=== PATIENT | female | born 1975 | race Caucasian/White ===

== ENCOUNTER 2016-12-07 14:50 | Emergency (ER) | payer OTHER ==
[2016-12-07 15:03] VITALS: BP 150/97; PULSE 97; TEMP 98.1; BMI 30.1
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
[2016-12-07] MEDS ORDERED: KETOROLAC TROMETHAMINE 60 MG/2 ML VIAL IM ONE (15:32)
[2016-12-07] MEDS ORDERED: hydrOXYzine PAMOATE 50 MG CAPSULE (FP) PO ONE (15:33)
[2016-12-07] MEDS ORDERED: hydrOXYzine PAMOATE 25 MG CAPSULE (FP) PO ONE (15:48)
[2016-12-07] MEDS ORDERED: KETOROLAC TROMETHAMINE 60 MG/2 ML VIAL ONE (15:48)
== END 2016-12-07 17:25 | disposition home or self-care (01) ==
LOC: FER 14:50
PROC: 3E0233Z Introduction of Anti-inflammatory into Muscle, Percutaneous Approach (ICD-10-PCS; principal; 2016-12-07)
DX: S13.4XXA Sprain of ligaments of cervical spine, initial encounter (principal); V43.52XA Car driver injured in collision with other type car in traffic accident, initial encounter; Y93.89 Activity, other specified; Y92.410 Unspecified street and highway as the place of occurrence of the external cause; J45.909 Unspecified asthma, uncomplicated; E78.00 Pure hypercholesterolemia, unspecified; E07.9 Disorder of thyroid, unspecified; Z87.891 Personal history of nicotine dependence
CPT/HCPCS: 72050-TC; 84703; 99283-25

== ENCOUNTER 2017-06-30 02:32 | Emergency (ER) | payer OTHER ==
[2017-06-30 03:11] VITALS: BMI 31.5
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
[2017-06-30] MEDS ORDERED: ACETAMINOPHEN 1000 MG/100 ML VIAL (NON FORMULARY) IVPB ONE (03:49)
[2017-06-30] MEDS ORDERED: ACETAMINOPHEN INJECTION 100 ML IVPB ONE (04:03)
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
[2017-06-30 04:11] LABS: URINE APPEARANCE CLEAR; URINE BILIRUBIN NEGATIVE (NEGATIVE); URINE BLOOD NEGATIVE (NEGATIVE); URINE COLOR LT. YELLOW; URINE GLUCOSE (UA) NEGATIVE (NEGATIVE); URINE KETONE NEGATIVE (NEGATIVE); URINE NITRITE NEGATIVE (NEGATIVE); URINE PROTEIN NEGATIVE (NEGATIVE); URINE UROBILINOGEN 0.2 mg/dL (0.2-1.0)
[2017-06-30 04:13] LABS: URINE LEUK ESTERASE 2+ (NEGATIVE)
[2017-06-30 04:25] LABS: URINE WBC 15 /hpf (3-5)
[2017-06-30 04:27] LABS: BASOPHIL 1.3 % (0-2.0); EOSINOPHIL 3.2 % (0-4.5); MCH 31.8 pg (25.7-33.7); MCHC 34.1 g/dl (32.0-36.0); MEAN CELL VOLUME 93.2 fl (80-96); MEAN PLT VOLUME 8.7 fl (7.5-11.1); NEUTROPHILS 56.5 % (42.8-82.8); PLATELET COUNT 264 K/MM3 (134-434); RDW 12.8 % (11.6-15.6); WHITE BLOOD COUNT 9.1 K/mm3 (4.0-10.0)
[2017-06-30 04:38] LABS: INR 1.03 (0.82-1.09); PROTHROMBIN TIME (PATIENT) 11.3 SEC (9.98-11.88)
[2017-06-30 05:48] LABS: ALBUMIN 3.6 g/dl (3.4-5.0); ALK PHOS 39 U/L (45-117); ANION GAP 6 (8-16); BILIRUBIN,TOTAL 0.3 mg/dL (0.2-1.0); CALCIUM 8.9 mg/dL (8.5-10.1); CO2 25 mmol/L (21-32); CREATININE 0.5 mg/dL (0.55-1.02); GLUCOSE,RANDOM 90 mg/dL (74-106); SGPT/ALT 26 U/L (12-78); TOT PROT 6.8 g/dl (6.4-8.2)
[2017-06-30 05:49] LABS: SGOT/AST 20 U/L (15-37)
[2017-06-30 07:27] VITALS: BP 126/78; PULSE 66; TEMP 98.6
== END 2017-06-30 08:25 | disposition home or self-care (01) ==
LOC: JER 02:32
PROC: 3E033NZ Introduction of Analgesics, Hypnotics, Sedatives into Peripheral Vein, Percutaneous Approach (ICD-10-PCS; principal; 2017-06-30)
DX: N83.201 Unspecified ovarian cyst, right side (principal); D25.9 Leiomyoma of uterus, unspecified
CPT/HCPCS: 36415; 76830-TC; 80053; 81003; 81015; 84703; 85025; 85610; 86850; 86900; 86901; 87086; 96374; 99282-25

== ENCOUNTER 2018-01-04 14:59 | Emergency (ER) | payer OTHER ==
[2018-01-04 15:05] VITALS: BP 145/100; PULSE 83; TEMP 98; BMI 31.5
[2018-01-04] MEDS ORDERED: ONDANSETRON *ODT* 4 MG TABLET SL ONE (15:05)
--- NOTE | 2018-01-04 15:06 | PDOC ---
Rapid Medical Evaluation Time Seen by Provider: 01/04/18 15:00 Medical Evaluation: Allergies Allergy/AdvReac Type Severity Reaction Status Date / Time codeine Allergy Verified 06/30/17 02:45 sulfamethoxazole Allergy Verified 06/30/17 02:45 [From Bactrim] trimethoprim [From Bactrim] Allergy Verified 06/30/17 02:45 01/04/18 15:00 The patient presents with a chief complaint of: Chest pains starting approximately 20 minutes ago, was a 10/10 midsternal pain. Was standing talking to brother and pain started. Pain radiated to the back and jaw. Smokes a pack or two a day. Pain is now dull and less than before 4/10. No recent travel or control use. Also admits to nausea. I have performed a brief in-person evaluation of this patient; Pertinent physical exam findings: ambulatory, in no respiratory distress I have ordered the following: CBC, CMP, PT/INR, Cardiac profile, mag, EKG, Chest x-ray The patient will proceed to the ED for further evaluation.
[2018-01-04] MEDS ORDERED: ONDANSETRON *ODT* 4 MG TABLET ONE (15:29)
[2018-01-04 15:46] LABS: EOS % 2.4 % (0-4.5); HEMATOCRIT 42.9 % (32.4-45.2); HEMOGLOBIN 14.8 GM/dL (10.7-15.3); LYMPH % 31.2 % (8-40); MCH 32.4 pg (25.7-33.7); MCHC 34.4 g/dl (32.0-36.0); MEAN CELL VOLUME 93.9 fl (80-96); MEAN PLT VOLUME 8.6 fl (7.5-11.1); MONO % 7.7 % (3.8-10.2); NEUT % 57.7 % (42.8-82.8); PLATELET COUNT 297 K/MM3 (134-434); RBC 4.57 M/mm3 (3.60-5.2); RDW 13.1 % (11.6-15.6); WHITE BLOOD COUNT 8.2 K/mm3 (4.0-10.0)
[2018-01-04 15:48] LABS: URINE APPEARANCE CLEAR; URINE BILIRUBIN NEGATIVE (<2.0 mg/dL); URINE BLOOD NEGATIVE (NEGATIVE); URINE COLOR LTYELLOW; URINE GLUCOSE (UA) NEGATIVE (NEGATIVE); URINE KETONE NEGATIVE (NEGATIVE); URINE LEUK ESTERASE 1+ (NEGATIVE); URINE NITRITE NEGATIVE (NEGATIVE); URINE PROTEIN NEGATIVE (NEGATIVE); URINE UROBILINOGEN NEGATIVE mg/dL (0.2-1.0)
[2018-01-04 15:49] LABS: HCG,QUALITATIVE URINE NEGATIVE
[2018-01-04 15:51] LABS: EPI CELLS RARE /HPF (FEW); URINE MUCUS RARE
[2018-01-04 16:01] LABS: INR 1.06 (0.82-1.09)
[2018-01-04 16:12] LABS: ALBUMIN 3.9 g/dl (3.4-5.0); ALK PHOS 47 U/L (45-117); ANION GAP 10 (8-16); BILIRUBIN,TOTAL 0.5 mg/dL (0.2-1.0); BLOOD UREA NITROGEN 8 mg/dL (7-18); CALCIUM 9.2 mg/dL (8.5-10.1); CHLORIDE 104 mmol/L (98-107); CO2 28 mmol/L (21-32); CREATININE 0.6 mg/dL (0.55-1.02); GLUCOSE,RANDOM 92 mg/dL (74-106); MAGNESIUM 2.4 mg/dL (1.8-2.4); POTASSIUM 4.5 mmol/L (3.5-5.1); SGOT/AST 21 U/L (15-37); SGPT/ALT 28 U/L (12-78); SODIUM 142 mmol/L (136-145); TOT PROT 7.4 g/dl (6.4-8.2)
--- NOTE | 2018-01-04 16:28 | PDOC ---
History of Present Illness - General Chief Complaint: Chest Pain Stated Complaint: PAIN/ CHEST, NECK Time Seen by Provider: 01/04/18 15:00 History Source: Patient Exam Limitations: No Limitations - History of Present Illness Initial Comments: 01/04/18 16:39 This is 42-year-old woman with past medical history of anxiety, GERD, migraines , hypothyroidism, hyperlipidemia who presents to emergency department with sudden onset midsternal chest pain while discussing a green party for her step- mother. Patient was sitting down discussing with her brother when the pain came on all of a sudden patient states the pain was a dull feeling with a rating of 7 -8/10. She states the pain was radiating to her right jaw and she was feeling nauseous. She denies vomiting. She states the pain subsided to 2/10 after approximately 45 minutes. Patient notes that she's been having epigastric pain on arrival for the past 5 weeks. Patient denies any reads of inactivity, recent medication changes or OCP use. Patient is currently 1-2 pack per day smoker. She denies fevers, chills, cough, dizziness, shortness of breath, abdominal pain , vomiting, dysuria, hematuria, rectal bleeding, diarrhea. Past History - Past Medical History Allergies/Adverse Reactions: Allergies Allergy/AdvReac Type Severity Reaction Status Date / Time codeine Allergy Verified 01/04/18 15:00 sulfamethoxazole Allergy Verified 01/04/18 15:00 [From Bactrim] trimethoprim [From Bactrim] Allergy Verified 01/04/18 15:00 Home Medications: Ambulatory Orders Levothyroxine [Synthroid -] 137 mcg PO DAILY 02/17/16 Ranitidine [Zantac -] 150 mg PO DAILY #30 tablet 02/21/16 Botulinum Toxin A [Botox (Nf) -] 0 units IM ASDIR 12/07/16 Butalb/Acetaminophen/Caffeine [Kwonfr-Yrzujtpi-Emah 50-325-40] 1 each PO PRN PRN 01/04/18 Cyclobenzaprine HCl [Flexeril 10 mg] 10 mg PO TID PRN 01/04/18 Naproxen [Naprosyn] 375 mg PO BID PRN 01/04/18 Anemia: No Asthma: Yes Cancer: No Cardiac Disorders: No CVA: No COPD: No CHF: No DVT: No Dementia: No Diabetes: No GI Disorders: Yes (gerd) Disorders: No HTN: No Hypercholesterolemia: Yes Liver Disease: No Seizures: No Thyroid Disease: Yes (hyper) - Surgical History Abdominal Surgery: No Appendectomy: No Cardiac Surgery: No Cholecystectomy: No Gastric Stapling: No GI Surgery: No Lung Surgery: No Neurologic Surgery: No - Family Disease History Family Disease History: Heart Disease: Father, Other: Mother ([place]), Brother ( [place]inuds) - Suicide/Smoking/Psychosocial Hx Smoking History: Current every day smoker Have you smoked in the past 12 months: Yes Number of Cigarettes Smoked Daily: 30 Information on smoking cessation initiated: Yes 'Breaking Loose' booklet given: 01/04/18 Hx Alcohol Use: No Drug/Substance Use Hx: No Substance Use Type: None Cardiac Specific PMH - Complaint Specific PMHX Pacemaker: No Review of Systems - Review of Systems Able to Perform ROS?: Yes Is the patient limited [place] proficient: No Constitutional: No: Symptoms Reported HEENTM: No: Symptoms Reported Respiratory: No: Symptoms reported Cardiac (ROS): Yes: See HPI ABD/GI: Yes: See HPI : No: Symptoms Reported Musculoskeletal: No: Symptoms Reported Integumentary: No: Symptoms Reported Neurological: No: Symptoms reported Endocrine: No: Symptoms Reported Hematologic/Lymphatic: No: Symptoms Reported *Physical Exam - Vital Signs Last Vital Signs Temp Pulse Resp BP Pulse Ox 98.0 F 83 18 145/100 100 01/04/18 15:01 01/04/18 15:01 01/04/18 15:01 01/04/18 15:01 01/04/18 15:01 - Physical Exam General Appearance: Yes: Appropriately Dressed. No: Apparent Distress HEENT: positive: Normal ENT Inspection Neck: positive: Trachea midline, Supple Respiratory/Chest: positive: Lungs Clear, Normal Breath Sounds. negative: Respiratory Distress, Accessory Muscle Use Cardiovascular: positive: Regular Rhythm, Regular Rate, S1, S2. negative: Edema , Murmur Gastrointestinal/Abdominal: positive: Normal Bowel Sounds, Soft. negative: Tender Musculoskeletal: positive: Normal Inspection. negative: CVA Tenderness Extremity: positive: Normal Capillary Refill, Normal Inspection, Normal Range of Motion Integumentary: positive: Normal Color, Dry, Warm Neurologic: positive: tablet technician II-XII NML intact, Fully Oriented, Alert, Normal Mood/ Affect, Normal Response, Motor Strength 5/5 ED Treatment Course - LABORATORY CBC & Chemistry Diagram: 01/04/18 15:25 01/04/18 15:25 - ADDITIONAL ORDERS Additional order review: 01/04/18 15:25 RBC 4.57 MCV 93.9 MCHC 34.4 RDW 13.1 MPV 8.6 Neutrophils % 57.7 Lymphocytes % 31.2 Monocytes % 7.7 Eosinophils % 2.4 Basophils % 1.0 - Medications Given in the ED: ED Medications Discontinued Medications Generic Name Dose Route Start Last Admin Trade Name Jules PRN Reason Stop Dose Admin Ondansetron HCl 4 mg 01/04/18 15:05 01/04/18 15:31 Zofran Odt - SL 01/04/18 15:06 4 mg ONCE ONE Administration Medical Decision Making - Medical Decision Making 01/04/18 16:45 CC: Midsternal chest pain radiating to her right jaw lasting approximately 45 minutes A/P: 42-year-old woman with history of panic attacks, GERD, migraines, hypothyroidism , hypercholesterolemia with sudden onset midsternal chest pressure radiating to her right jaw lasting approximately 45 minutes rated 7-8/10 and currently 2/10. Lungs clear to auscultation bilaterally. RRR. S1 and S2 present. No murmur, rub or gallop appreciated. Abdomen soft nontender nondistended. No pedal edema present Differential diagnoses include ACS, [place] skeletal pain, anxiety, GERD Less likely PE given perks score of 0. This likely pneumonia as patient is no coughing and has not reported any fevers Labs, EKG, chest x-ray *DC/Admit/Observation/Transfer Diagnosis at time of Disposition: Atypical chest pain - Discharge Dispostion Disposition: AGAINST MEDICAL ADVICE Condition at time of disposition: Stable - Referrals Referrals: Keaton Morales MD [Staff Physician] - James Barfield MD [Primary Care Provider] - - Patient Instructions Printed Discharge Instructions: DI for Atypical Chest Pain Additional Instructions: Take Tylenol as needed for pain Follow-up with your physician and the well puller listed on your discharge sheet if you don't have one You are signing out AGAINST MEDICAL ADVICE, Return back to the emergency department for severe/persistent or worsening symptoms - Post Discharge Activity
--- NOTE | 2018-01-04 21:15 | PDOC ---
*Physical Exam - Vital Signs Last Vital Signs Temp Pulse Resp BP Pulse Ox 98.0 F 83 18 145/100 100 01/04/18 15:01 01/04/18 15:01 01/04/18 15:01 01/04/18 15:01 01/04/18 15:01 - Physical Exam Comments: 01/04/18 21:13 42-year-old female presents to the emergency department complaining of 10/10 dull intermittent midsternal chest pain radiating to the back and jaw prior to her arrival to the ER but has decreased to 2/10 dull nonradiating discomfort. Patient denies nausea/vomiting, fever/chills at this time, headache, dizziness, lightheadedness, facial pains, neck pains, back pains, shortness of breath, abdominal discomfort, urinary symptoms. Patient states she feels a lot better at this time. She reports if she initially started with the symptoms that she has now, she was noted to come to the emergency department. ED Treatment Course - LABORATORY CBC & Chemistry Diagram: 01/04/18 15:25 01/04/18 15:25 - ADDITIONAL ORDERS Additional order review: Laboratory Results 01/04/18 01/04/18 01/04/18 15:30 15:25 15:25 PT with INR INR Sodium 142 Potassium 4.5 Chloride 104 Carbon Dioxide 28 Anion Gap 10 BUN 8 Creatinine 0.6 Creat Clearance w eGFR > 60 Random Glucose 92 Calcium 9.2 Magnesium 2.4 Total Bilirubin 0.5 D AST 21 ALT 28 Alkaline Phosphatase 47 Creatine Kinase 65 Troponin I < 0.02 Total Protein 7.4 Albumin 3.9 Urine Color Ltyellow Urine Appearance Clear Urine pH 7.0 Ur Specific [place] 1.010 Urine Protein Negative Urine Glucose (UA) Negative Urine Ketones Negative Urine Blood Negative Urine Nitrite Negative Urine Bilirubin Negative Urine Urobilinogen Negative Ur Leukocyte Esterase 1+ H Urine WBC (Auto) 1 Urine RBC (Auto) None Ur Epithelial Cells Rare Urine Mucus Rare Urine HCG, Qual Negative 01/04/18 15:25 PT with INR 12.00 H INR 1.06 Sodium Potassium Chloride Carbon Dioxide Anion Gap BUN Creatinine Creat Clearance w eGFR Random Glucose Calcium Magnesium Total Bilirubin AST ALT Alkaline Phosphatase Creatine Kinase Troponin I Total Protein Albumin Urine Color Urine Appearance Urine pH Ur Specific [place] Urine Protein Urine Glucose (UA) Urine Ketones Urine Blood Urine Nitrite Urine Bilirubin Urine Urobilinogen Ur Leukocyte Esterase Urine WBC (Auto) Urine RBC (Auto) Ur Epithelial Cells Urine Mucus Urine HCG, Qual 01/04/18 15:25 RBC 4.57 MCV 93.9 MCHC 34.4 RDW 13.1 MPV 8.6 Neutrophils % 57.7 Lymphocytes % 31.2 Monocytes % 7.7 Eosinophils % 2.4 Basophils % 1.0 - Medications Given in the ED: ED Medications Discontinued Medications Generic Name Dose Route Start Last Admin Trade Name Jules PRN Reason Stop Dose Admin Ondansetron HCl 4 mg 01/04/18 15:05 01/04/18 15:31 Zofran Odt - SL 01/04/18 15:06 4 mg ONCE ONE Administration Progress Note - Progress Note Progress Note: GENERAL: Well developed, well nourished. Awake and alert. No acute distress. HEENT: Normocephalic, atraumatic. PERRLA, EOMI. No conjunctival pallor. Sclera are non- icteric. Moist mucous membranes. Oropharynx is clear. NECK: Supple. Full ROM. No JVD. Carotid pulses 2+ and symmetric, without bruits. No thyromegaly. No lymphadenopathy. CARDIOVASCULAR: Regular rate and rhythm. No murmurs, rubs, or gallops. Distal pulses are 2+ and symmetric. PULMONARY: No evidence of respiratory distress. Lungs clear to auscultation bilaterally. No wheezing, rales or rhonchi. ABDOMINAL: Soft. Non-tender. Non-distended. No rebound or guarding. No organomegaly. Normoactive bowel sounds. MUSCULOSKELETAL Normal range of motion at all joints. No bony deformities or tenderness. No CVA tenderness. EXTREMITIES: No cyanosis. No clubbing. No edema. No calf tenderness. SKIN: Warm and dry. Normal capillary refill. No rashes. No jaundice. *DC/Admit/Observation/Transfer Diagnosis at time of Disposition: Atypical chest pain - Discharge Dispostion Disposition: AGAINST MEDICAL ADVICE Condition at time of disposition: Stable Admit: No - Referrals Referrals: James Barfield MD [Primary Care Provider] - Keaton Morales MD [Staff Physician] - - Patient Instructions Printed Discharge Instructions: DI for Atypical Chest Pain Additional Instructions: Take Tylenol as needed for pain Follow-up with your physician and the substation designer listed on your discharge sheet if you don't have one You are signing out AGAINST MEDICAL ADVICE, Return back to the emergency department for severe/persistent or worsening symptoms - Post Discharge Activity
--- NOTE | 2018-01-07 11:39 | EKG ---
Test Reason : Blood Pressure : / mmHG Vent. Rate : 081 BPM Atrial Rate : 081 BPM P-R Int : 150 ms QRS Dur : 082 ms QT Int : 370 ms P-R-T Axes : 062 026 050 degrees QTc Int : 429 ms NORMAL SINUS RHYTHM NORMAL ECG WHEN COMPARED WITH ECG OF 19-FEB-2016 12:28, VENT. RATE HAS INCREASED BY 27 BPM T WAVE VARIATION Confirmed by BELEM LEON MD ([id number]) on 01/07/2018 11:39:07 AM Referred By: Confirmed By:BELEM LEON MD
== END 2018-01-04 23:25 | disposition left against medical advice (07) ==
LOC: JER 14:59
DX: R07.89 Other chest pain (principal); J45.909 Unspecified asthma, uncomplicated; E03.9 Hypothyroidism, unspecified; K21.9 Gastro-esophageal reflux disease without esophagitis; E78.5 Hyperlipidemia, unspecified; F17.210 Nicotine dependence, cigarettes, uncomplicated; F41.9 Anxiety disorder, unspecified
CPT/HCPCS: 36415; 71046-TC-FY; 80053; 81003; 81015; 82550; 83735; 84484; 84703; 85025; 85610; 93005; 93010; 99283-25; Q0162

== ENCOUNTER 2018-07-08 12:50 | Emergency (ER) | payer OTHER ==
[2018-07-08 12:59] VITALS: BP 176/88; PULSE 89; TEMP 98.6; BMI 30.8
[2018-07-08] MEDS ORDERED: IBUPROFEN 400 MG TABLET (FP) PO ONE (15:06)
--- NOTE | 2018-07-08 15:14 | PDOC ---
History of Present Illness - General Chief Complaint: Injury Stated Complaint: INJURY Time Seen by Provider: 07/08/18 13:35 - History of Present Illness Initial Comments: 43-year-old female with a asked medical history significant for hypothyroidism presents for evaluation after slip and fall. She states she slipped on a wet deck fell and hit her face on a step contusing her nose. She does have some post injury headache without visual changes and nausea some neck pain. No visual changes. No post injury vomiting 07/08/18 15:08 Past History - Past Medical History Allergies/Adverse Reactions: Allergies Allergy/AdvReac Type Severity Reaction Status Date / Time codeine Allergy Verified 07/08/18 12:53 sulfamethoxazole Allergy Verified 07/08/18 12:53 [From Bactrim] trimethoprim [From Bactrim] Allergy Verified 07/08/18 12:53 Home Medications: Ambulatory Orders Levothyroxine [Synthroid -] 137 mcg PO DAILY 02/17/16 Ranitidine [Zantac -] 150 mg PO DAILY #30 tablet 02/21/16 Botulinum Toxin A [Botox (Nf) -] 0 units IM ASDIR 12/07/16 Butalb/Acetaminophen/Caffeine [Virkyt-Nukajhdb-Fjrw 50-325-40] 1 each PO PRN PRN 01/04/18 Cyclobenzaprine HCl [Flexeril 10 mg] 10 mg PO TID PRN 01/04/18 Naproxen [Naprosyn] 375 mg PO BID PRN 01/04/18 Anemia: No Asthma: Yes Cancer: No Cardiac Disorders: No CVA: No COPD: No CHF: No DVT: No Dementia: No Diabetes: No GI Disorders: Yes (gerd) Disorders: No HTN: No Hypercholesterolemia: Yes Liver Disease: No Seizures: No Thyroid Disease: Yes (hyper) - Surgical History Abdominal Surgery: No Appendectomy: No Cardiac Surgery: No Cholecystectomy: No Gastric Stapling: No GI Surgery: No Lung Surgery: No Neurologic Surgery: No - Family Disease History Family Disease History: Heart Disease: Father, Other: Mother (MS), Brother ( Raynauds) - Suicide/Smoking/Psychosocial Hx Smoking History: Current every day smoker Have you smoked in the past 12 months: Yes Number of Cigarettes Smoked Daily: 20 Information on smoking cessation initiated: No 'Breaking Loose' booklet given: 01/04/18 Hx Alcohol Use: No Drug/Substance Use Hx: No Substance Use Type: None Review of Systems - Review of Systems HEENTM: Yes: Nose Pain. No: Eye Pain, Blurred Vision, Double Vision, Tinnitus Neurological: Yes: Headache All Other Systems: Reviewed and Negative *Physical Exam - Vital Signs Last Vital Signs Temp Pulse Resp BP Pulse Ox 98.6 F 89 18 176/88 H 98 07/08/18 12:55 07/08/18 12:55 07/08/18 12:55 07/08/18 12:55 07/08/18 12:55 - Physical Exam Comments: HEAD: NC EYES: Conjuntiva clear Ears: Canals and TM's normal NOSE: No d/c, there dried blood in the nostrils there is nasal swelling without crepitation appropriate tenderness about the nasal bones. THROAT: Moist mucous membrances, oral pharanx clear, uvula midline NECK: Supple without adenopathy CARDIAC: S1 S2 LUNGS: CTA Full and Equal breath sounds ABDOMEN: Soft NT ND MS: Full ROM in all joints without edema NEUROLOGIC: No gross sensory or motor deficits, NVID SKIN: Normal color and temperature no lesions or rashes 07/08/18 15:11 ED Treatment Course - ADDITIONAL ORDERS Additional order review: Laboratory Results 07/08/18 13:35 Urine HCG, Qual Negative - RADIOLOGY Radiology Studies Ordered: Category Date Time Status CERVICAL SPINE CT W/O CONTR [CT] Stat CT Scan 07/08/18 13:[address] W/O CONTRAST [CT] Stat CT Scan 07/08/18 13:[address] WITHOUT CONTRAST [CT] Stat CT Scan 07/08/18 13:56 Completed Medical Decision Making - Medical Decision Making Facial contusion closed head injury I have patient follow-up with PCP and plastic surgery no acute fractures CTs reviewed patient is aware of CT findings 07/08/18 15:13 *DC/Admit/Observation/Transfer Diagnosis at time of Disposition: Closed head injury, Contusion of nose - Referrals Referrals: Alvaro Adam [Non Staff, Medical] - Sheila Carver MD [Non Staff, Medical] - Shiva Waller MD [Non Staff, Medical] - Lewis Iverson [Nurse Practitioner] - Riccardo Rosas [Non Staff, Medical] - Anju Crowe MD [Non Staff, Medical] - Ulices Ruiz MD [Non Staff, Medical] - Rl Short MD [Staff Physician] - Ysabel Alejo MD [Non Staff, Medical] - Krzysztof Krishnamurthy DO [Staff Physician] - - Patient Instructions Additional Instructions: Follow-up with plastic surgery for evaluation. Facial contusions. She also follow-up with neurology fear closed head injury. Return to the emergency room should symptoms worsen or go unresolved may take Tylenol and Motrin for pain as directed. - Post Discharge Activity
[2018-07-08] MEDS ORDERED: IBUPROFEN 600 MG TABLET (FP) PO ONE (15:16)
== END 2018-07-08 15:36 | disposition home or self-care (01) ==
LOC: JERFT 12:50
DX: S00.33XA Contusion of nose, initial encounter (principal); W01.0XXA Fall on same level from slipping, tripping and stumbling without subsequent striking against object, initial encounter; Z91.81 History of falling; Y93.89 Activity, other specified; Y92.89 Other specified places as the place of occurrence of the external cause; Y99.8 Other external cause status; E06.9 Thyroiditis, unspecified; K21.9 Gastro-esophageal reflux disease without esophagitis; E78.00 Pure hypercholesterolemia, unspecified; Z87.09 Personal history of other diseases of the respiratory system; Z88.2 Allergy status to sulfonamides; Z88.0 Allergy status to penicillin
CPT/HCPCS: 70450-TC; 70486-TC; 72125-TC; 84703; 99281-25

== ENCOUNTER 2019-04-07 15:21 | Emergency (ER) | payer OTHER ==
[2019-04-07] MEDS ORDERED: KETOROLAC TROMETHAMINE 60 MG/2 ML VIAL IM ONE (17:11)
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
[2019-04-07 17:19] VITALS: BP 127/80; PULSE 72; TEMP 98.6; BMI 31.6
[2019-04-07] MEDS ORDERED: KETOROLAC TROMETHAMINE 60 MG/2 ML VIAL ONE (17:19)
== END 2019-04-07 17:49 | disposition home or self-care (01) ==
LOC: FER 15:21
PROC: 3E0233Z Introduction of Anti-inflammatory into Muscle, Percutaneous Approach (ICD-10-PCS; principal; 2019-04-07)
DX: Z04.1 Encounter for examination and observation following transport accident (principal); S13.4XXA Sprain of ligaments of cervical spine, initial encounter; V49.40XA Driver injured in collision with unspecified motor vehicles in traffic accident, initial encounter; Y93.89 Activity, other specified; Y92.89 Other specified places as the place of occurrence of the external cause; F17.210 Nicotine dependence, cigarettes, uncomplicated; K21.9 Gastro-esophageal reflux disease without esophagitis; E78.00 Pure hypercholesterolemia, unspecified; E07.9 Disorder of thyroid, unspecified
CPT/HCPCS: 99282-25

== ENCOUNTER 2020-04-21 11:58 | Day surgery (SDC) | payer OTHER ==
[2020-04-20 12:20] VITALS: BMI 28.4
[2020-04-21] MEDS ORDERED: MIDAZOLAM HCL 2 MG/2 ML SINGLE DOSE VIAL ONE (14:30)
[2020-04-21] MEDS ORDERED: ceFAZolin SODIUM 1 GM VIAL IVPB ONE (14:54)
[2020-04-21] MEDS ORDERED: ONDANSETRON 4 MG/2 ML VIAL IVPUSH PRN (15:06)
[2020-04-21] MEDS ORDERED: oxyCODONE HCL 5 MG TABLET PO PRN (15:06)
[2020-04-21] MEDS ORDERED: PROMETHAZINE HCL 25 MG/1 ML VIAL IVPUSH PRN (15:06)
--- NOTE | 2020-04-21 15:10 | HP ---
History & Physical Update - History History: No Change - Physical Physical: No Change - Assessment Assessment: No Change - Plan Plan: No Change (Hysteroscopy, D&C)
[2020-04-21] MEDS ORDERED: KETOROLAC TROMETHAMINE 30 MG/1 ML VIAL ONE (15:12)
[2020-04-21] MEDS ORDERED: ceFAZolin SODIUM 1 GM VIAL ONE (15:12)
[2020-04-21] MEDS ORDERED: DEXAMETHASONE SOD PHOSPHATE 4 MG/1 ML VIAL ONE (15:12)
[2020-04-21] MEDS ORDERED: LIDOCAINE HCL/PF 2% SDV 5ML VIAL ONE (15:12)
--- NOTE | 2020-04-21 15:14 | OP ---
Operative Note - Note: Operative Date: 04/21/20 Pre-Operative Diagnosis: Irregular menses, fibroid uterus Operation: Hysteroscopy, D&C Findings: (+) menses. Large and bulky fibroid uterus, normally shaped uterine cavity that sounded to 9cm. Post-Operative Diagnosis: Same as Pre-op Surgeon: Clay Sumner Anesthesiologist/ROTARY DRILLER HELPER: Payam Medel Anesthesia: General Specimens Removed: Endometrial curettings Estimated Blood Loss (mls): 5 Blood Volume Replaced (mls): 0 Fluid Volume Replaced (mls): 500 Operative Report Dictated: Yes
[2020-04-21 15:57] VITALS: TEMP 98
[2020-04-21 17:26] VITALS: BP 121/61; PULSE 75
--- NOTE | 2020-04-22 14:24 | OP ---
DATE OF OPERATION: 04/21/2020 PREOPERATIVE DIAGNOSIS: Irregular menses, fibroid uterus. POSTOPERATIVE DIAGNOSIS: Irregular menses, fibroid uterus. PROCEDURE: Hysteroscopy, dilation and curettage. SURGEON: Clay Sumner MD ANESTHESIA: General. ANESTHESIOLOGIST: Payam Medel MD COMPLICATIONS: None. ESTIMATED BLOOD LOSS: 5 mL. INTRAVENOUS FLUIDS: 500 mL of crystalloids. PATHOLOGY: Endometrial curettings. FINDINGS: Examination under anesthesia revealed patient is currently on mensis. The uterus appeared enlarged and bulky, with multiple fibroids and consistent with approximately 12-13 weeks of gestation. The hysteroscopy showed a normally shaped uterine cavity that was sounded to approximately 9 cm. There were no endometrial lesions. Neither fallopian tube os could be identified. PROCEDURE DICTATION: The patient was met preoperatively. Risks, benefits, and alternatives of surgery were discussed in detail. All questions were answered. The consent form was reviewed and discussed. The patient verbalized her understanding and requested to proceed with the surgery. She was brought to the OR with the IV running. She was placed on a surgical table in the supine position. The general anesthesia was achieved without difficulty. The patient was then placed in a dorsal lithotomy position using adjustable Trae stirrups. She was examined under anesthesia, with the findings as described above. The patient was prepped and draped in the usual sterile fashion. A timeout was conducted as per standard protocol. A weighted speculum was introduced inside the vagina, with good visualization of the cervix. The cervix was grasped with a single-tooth tenaculum. The cervical os was dilated to accommodate a size 13 Moses dilator. A diagnostic hysteroscope was then introduced inside the uterine cavity, with the findings as described above. The hysteroscope was then removed. Uterine curettage was performed gently. The uterine curettings were sent to pathology for evaluation. Once this was completed, a diagnostic hysteroscope was once again placed inside the uterine cavity, with the findings as described above. The hysteroscope was then removed. Good hemostasis was confirmed. All of the instruments were removed from the patient. Sponge, lap, needle counts, instrument counts were correct. The patient was transferred to recovery room in stable condition and awake. Jose FAUSTIN/[id number]
--- NOTE | 2020-04-23 18:29 | PATH ---
Surgical Pathology Report Patient Name: LUZ MARIA GRIMES [facility]. Rec. #: [id number] /Age/Gender: 1975 (Age: 44) / F Account: [id number] Location: [facility] Taken: 04/21/2020 Received: 04/22/2020 Reported: 04/23/2020 Physicians: Clay Sumner M.D. Specimen(s) Received ENDOMETRIAL CURETTINGS Clinical History Fibroid uterus, irregular menstruation Final Diagnosis ENDOMETRIAL CURETTINGS: PREDOMINANTLY WEAKLY PROLIFERATIVE AND FEW SECRETORY TYPE ENDOMETRIAL GLANDS ADMIXED WITH BLOOD AND NEUTROPHILS, CONSISTENT WITH MENSTRUAL ENDOMETRIUM. SEPARATE SMALL PORTIONS OF ENDOMETRIUM POLYP. ENDOCERVICAL TISSUE WITH SQUAMOUS METAPLASIA. Electronically Signed Gricelda Mooney M.D. Gross Description Received in formalin labeled "endometrial curettings," is a 5.0 x 3.8 x 0.4 cm aggregate of callejas-brown soft tissue fragments admixed with blood clot. The formalin is filtered and the specimen is entirely submitted in 4 cassettes. /04/22/2020 [facility]/04/22/2020
== END 2020-04-21 17:28 | disposition home or self-care (01) ==
LOC: JASU-SURG 11:58
PROVIDERS: ATTEND Obstetrics & Gynecology
PROC: 0UDB7ZX Extraction of Endometrium, Via Natural or Artificial Opening, Diagnostic (ICD-10-PCS; principal; 2020-04-21 14:00)
PROC: 0UJD8ZZ Inspection of Uterus and Cervix, Via Natural or Artificial Opening Endoscopic (ICD-10-PCS; 2020-04-21 14:00)
DX: N93.9 Abnormal uterine and vaginal bleeding, unspecified (principal); D25.9 Leiomyoma of uterus, unspecified
CPT/HCPCS: 84703; 88305-TC; 94760

== ENCOUNTER 2021-09-23 05:11 | Day surgery (SDC) | payer OTHER ==
[2021-09-21 14:33] VITALS: BMI 31.8
[2021-09-23 11:04] VITALS: TEMP 98.9
[2021-09-23 11:49] VITALS: BP 99/53; PULSE 58
== END 2021-09-23 13:05 | disposition home or self-care (01) ==
LOC: JASU-ENDO 05:11
PROVIDERS: ATTEND Internal Medicine Gastroenterology
PROC: 0DJD8ZZ Inspection of Lower Intestinal Tract, Via Natural or Artificial Opening Endoscopic (ICD-10-PCS; principal; 2021-09-23 10:20)
DX: Z12.11 Encounter for screening for malignant neoplasm of colon (principal); Z83.71 Family history of colonic polyps; K63.89 Other specified diseases of intestine
CPT/HCPCS: 81025

== ENCOUNTER 2021-09-26 22:43 | Observation (INO) | payer OTHER ==
[2021-09-26 23:04] VITALS: TEMP 98.3; BMI 31.5
[2021-09-27 02:48] LABS: BASO % 0.4 % (0-2.0); LYMPH % 33.5 % (8-40); MCH 31.1 pg (25.7-33.7); MCHC 34.3 g/dl (32.0-36.0); MEAN CELL VOLUME 90.7 fl (80-96); MEAN PLT VOLUME 8.5 fl (7.5-11.1); MONO % 6.9 % (3.8-10.2); NEUT % 58.2 % (42.8-82.8); PLATELET COUNT 326 10^3/uL (134-434); RBC 4.52 M/mm3 (3.60-5.2); RDW 12.5 % (11.6-15.6); WHITE BLOOD COUNT 8.5 K/mm3 (4.0-10.0)
[2021-09-27 02:53] LABS: CHLORIDE 106 mmol/L (98-107); SODIUM 139 mmol/L (136-145)
[2021-09-27 02:56] LABS: ALBUMIN 3.4 g/dl (3.4-5.0); ANION GAP 8 MMOL/L (8-16); BLOOD UREA NITROGEN 15.4 mg/dL (7-18); CALCIUM 9.2 mg/dL (8.5-10.1); CO2 25 mmol/L (21-32); GLUCOSE,RANDOM 95 mg/dL (74-106); LIPASE 93 U/L (73-393)
[2021-09-27 02:59] LABS: CREATININE 0.6 mg/dL (0.55-1.3); SGOT/AST 17 U/L (15-37); SGPT/ALT 26 U/L (13-61)
[2021-09-27 03:01] LABS: BILIRUBIN,TOTAL 0.3 mg/dL (0.2-1)
[2021-09-27 03:02] LABS: ALK PHOS 37 U/L (45-117)
[2021-09-27 03:23] LABS: EPI CELLS 32 /uL (0-25.1); HYALINE CASTS 1 /uL (0-3.1); URINE APPEARANCE CLEAR; URINE BACTERIA 856 /uL (0-1359); URINE BILIRUBIN NEGATIVE (NEGATIVE); URINE COLOR YELLOW; URINE GLUCOSE (UA) NEGATIVE (NEGATIVE); URINE KETONE NEGATIVE (NEGATIVE); URINE LEUK ESTERASE TRACE (NEGATIVE); URINE NITRITE NEGATIVE (NEGATIVE); URINE PROTEIN NEGATIVE (NEGATIVE); URINE RBC 7 /uL (0-23.9); URINE UROBILINOGEN 0.2 mg/dL (0.2-1.0); URINE WBC 34 /uL (0-25.8)
[2021-09-27] MEDS ORDERED: LEVOTHYROXINE NA 112 MCG TABLET (FP) PO SCH (07:00)
[2021-09-27] MEDS ORDERED: LEVOTHYROXINE NA 125 MCG TABLET (FP) PO SCH (07:00)
[2021-09-27] MEDS ORDERED: MULTIVITAMINS (DAILY MVI) TABLET (FP) PO SCH (10:00)
[2021-09-27] MEDS ORDERED: ASPIRIN 81 MG CHEWABLE TABLETS PO SCH (10:00)
[2021-09-27] MEDS ORDERED: ASPIRIN 81 MG CHEWABLE TABLETS ONE (10:38)
[2021-09-27] MEDS ORDERED: MULTIVITAMINS (DAILY MVI) TABLET (FP) ONE (10:38)
[2021-09-27 12:08] VITALS: PULSE 78
[2021-09-27 13:55] VITALS: BP 120/69
== END 2021-09-27 13:55 | disposition home or self-care (01) ==
LOC: JER 22:43 → JERBED 09-27 05:43
PROVIDERS: ADMIT Family Medicine; ATTEND Family Medicine
PROC: 3E013GC Introduction of Other Therapeutic Substance into Subcutaneous Tissue, Percutaneous Approach (ICD-10-PCS; principal; 2021-09-27)
PROC: 3E0F7SF Introduction of Other Gas into Respiratory Tract, Via Natural or Artificial Opening (ICD-10-PCS; 2021-09-27)
DX: R07.89 Other chest pain (principal); E03.9 Hypothyroidism, unspecified; K21.9 Gastro-esophageal reflux disease without esophagitis; E78.5 Hyperlipidemia, unspecified; Z88.1 Allergy status to other antibiotic agents; Z88.2 Allergy status to sulfonamides; Z88.5 Allergy status to narcotic agent; Z20.822 Contact with and (suspected) exposure to COVID-19; Z87.891 Personal history of nicotine dependence
CPT/HCPCS: 36415; 71046-TC-FY; 76705-TC; 80053; 81003; 82550; 83690; 84484; 84703; 85025; 93005; 93010; 94640; 96372; 99285-25; C9803; G0378; U0003; U0005

== ENCOUNTER 2023-05-12 20:41 | Emergency (ER) | payer OTHER ==
[2023-05-12 20:48] VITALS: BP 148/96; PULSE 107; RESP 18; TEMP 97.5; BMI 33.7
[2023-05-12] MEDS ORDERED: ACETAMINOPHEN 1000 MG/100 ML BAG IVPB ONE (20:55)
[2023-05-12] MEDS ORDERED: SODIUM CHLORIDE 1,000 ML IV STA (20:55)
[2023-05-12] MEDS ORDERED: ONDANSETRON 4 MG/2 ML VIAL IVPUSH ONE (20:56)
[2023-05-12] MEDS ORDERED: ALPRAZolam 1 MG TABLET PO PRN (21:07)
[2023-05-12] MEDS ORDERED: FAMOTIDINE 20 MG/50 ML IVPB 20 MG/50 ML MG IVPB ONE (21:08)
[2023-05-12] MEDS ORDERED: MAG HYDROX/AL HYDROX/SIMETH 30 ML UNIT-DOSE CUP PO ONE (21:08)
[2023-05-12] MEDS ORDERED: MAG HYDROX/AL HYDROX/SIMETH 30 ML UNIT-DOSE CUP ONE (21:52)
[2023-05-12] MEDS ORDERED: ALPRAZolam 0.25 MG TABLET ONE (21:52)
[2023-05-12] MEDS ORDERED: FAMOTIDINE 10 MG/ML VIAL IVPB ONE (21:53)
[2023-05-12] MEDS ORDERED: ONDANSETRON 4 MG/2 ML VIAL ONE (21:53)
[2023-05-12 22:06] LABS: BASO % 0.8 % (0-2.0); EOS % 1.9 % (0-4.5); HEMATOCRIT 42.6 % (32.4-45.2); HEMOGLOBIN 14.7 GM/dL (10.7-15.3); LYMPH % 25.2 % (8-40); MCH 31.1 pg (25.7-33.7); MCHC 34.4 g/dl (32.0-36.0); MEAN CELL VOLUME 90.5 fl (80-96); MEAN PLT VOLUME 8.9 fl (7.5-11.1); MONO % 8.6 % (3.8-10.2); NEUT % 63.5 % (42.8-82.8); PLATELET COUNT 294 10^3/uL (134-434); RBC 4.71 M/mm3 (3.60-5.2); RDW 12.4 % (11.6-15.6); WHITE BLOOD COUNT 8.3 K/mm3 (4.0-10.0)
[2023-05-12 22:08] LABS: VENOUS O2 SATURATION 89.4 % (70-80); VENOUS PCO2 38.1 mmHg (38-52); VENOUS PH 7.375 (7.310-7.410)
[2023-05-12 22:13] LABS: CHLORIDE 112 mmol/L (98-107); POTASSIUM 3.7 mmol/L (3.5-5.1); SODIUM 145 mmol/L (136-145)
[2023-05-12 22:15] LABS: ALBUMIN 3.7 g/dl (3.4-5.0); ANION GAP 6 MMOL/L (8-16); CALCIUM 9.2 mg/dL (8.5-10.1); CO2 27 mmol/L (21-32); GLUCOSE,RANDOM 89 mg/dL (74-106); LIPASE 110 U/L (73-393)
[2023-05-12 22:18] LABS: BILIRUBIN,DIRECT 0.1 mg/dL (0.0-0.2); SGPT/ALT 29 U/L (13-61)
[2023-05-12 22:19] LABS: CREATININE 0.8 mg/dL (0.55-1.3); PHOSPHOROUS 2.3 mg/dL (2.5-4.9)
[2023-05-12 22:20] LABS: BILIRUBIN,TOTAL 0.3 mg/dL (0.2-1); TOT PROT 7.3 g/dl (6.4-8.2)
[2023-05-12 22:21] LABS: ALK PHOS 46 U/L (45-117)
[2023-05-12 22:38] LABS: LACTIC ACID 2.2 mmol/L (0.4-2.0)
[2023-05-12 22:39] LABS: SGOT/AST 18 U/L (15-37)
[2023-05-12 23:15] LABS: ACTIVATED PTT 30.6 SECONDS (25.2-36.5); INR 0.94 (0.83-1.09); PROTHROMBIN TIME (PATIENT) 10.9 SEC (9.7-13.0)
== END 2023-05-13 00:08 | disposition home or self-care (01) ==
LOC: JER 20:41
PROC: 3E033GC Introduction of Other Therapeutic Substance into Peripheral Vein, Percutaneous Approach (ICD-10-PCS; principal; 2023-05-12)
PROC: 3E033GC Introduction of Other Therapeutic Substance into Peripheral Vein, Percutaneous Approach (ICD-10-PCS; 2023-05-12)
DX: R06.02 Shortness of breath (principal); R11.2 Nausea with vomiting, unspecified; R00.2 Palpitations; F41.9 Anxiety disorder, unspecified; R06.9 Unspecified abnormalities of breathing
CPT/HCPCS: 36415; 71046-TC-FY; 80053; 82248; 82550; 82803; 83605; 83690; 83735; 84100; 84439; 84443; 84484; 84703; 85025; 85379; 85610; 85730; 86850; 86900; 86901; 87086; 93005; 93010; 99285-25